=== PATIENT | male | born 1940 | race Caucasian/White ===

== ENCOUNTER 2017-02-09 13:59 | Outpatient (CLI) | payer MEDICARE, BC | END 2017-02-09 14:00 | disposition home or self-care (01) | LOC: LAB 13:59 | PROVIDERS: ATTEND Urology | DX: R31.29 Other microscopic hematuria (principal); Z85.46 Personal history of malignant neoplasm of prostate; N35.9 Urethral stricture, unspecified; R35.1 Nocturia; N39.3 Stress incontinence (female) (male); N39.0 Urinary tract infection, site not specified; N32.0 Bladder-neck obstruction; R39.198 Other difficulties with micturition; Z92.3 Personal history of irradiation | CPT/HCPCS: 36415; 84153 ==

== ENCOUNTER 2018-02-19 09:26 | Outpatient (CLI) | payer MEDICARE, BC | END 2018-02-19 09:27 | disposition home or self-care (01) | LOC: LAB 09:26 | PROVIDERS: ATTEND Urology | DX: Z85.46 Personal history of malignant neoplasm of prostate (principal) | CPT/HCPCS: 36415; 84153 ==

== ENCOUNTER 2018-08-19 11:40 | Outpatient (CLI) | payer MEDICARE, BC | END 2018-08-19 11:41 | disposition home or self-care (01) | LOC: SC 11:40 | PROVIDERS: ATTEND Internal Medicine Pulmonary Disease | DX: G47.33 Obstructive sleep apnea (adult) (pediatric) (principal); E66.9 Obesity, unspecified; Z68.34 Body mass index [BMI] 34.0-34.9, adult | CPT/HCPCS: 99203; G0463; 99212 ==

== ENCOUNTER 2018-11-25 09:22 | Outpatient (CLI) | payer MEDICARE, BC ==
--- NOTE | 2018-11-25 09:45 | SLEEP CARE CONSULTATION ---
Information from patient questionnaire entered by Sharyn Corbin. I have reviewed and concur with the information entered by Sharyn Corbin. This document represents the service I personally performed and the decisions made by me, Nat Scott MD, [facility]. History of Present Illness Previous diagnosis: Moderate, Obstructive Sleep Apnea-Hypopnea Syndrome AHI: 17.4 Reason for CPAP/BiPAP follow up: first compliance Equipment type: BiPAP Equipment obtained from: [email or web address] Prior sleep studies: Yes Year and Where: 2009 [facility] additional information: HPI: Mr. George returned today for follow up of BiPAP therapy. He was diagnosed to have moderate obstructive sleep apnea-hypopnea syndrome. The patient acquired a new BiPAP from [email or web address]. He wears a nasal cushion. He reports using the device nightly and all through the night. The compliance report shows usage in 30 nights out of the past 30 nights, averaging 7.8 hours a night. He complained of no particular problem with the device such as soreness on the face, dry nose, epistaxis, nasal congestion or headache. He thinks that the pressure of 18/12 cmH2O is a little too strong (his original machine was set on 20/14 cmH2O but the loaner machine was set at 18/12 cmH2O). On the BiPAP th erapy he notices improvement in his sleep quality, and that he wakes up feeling fresher in the morning and more awake/alert during the day. His notices no snore at all. The average residual AHI is 7.0; and average time in large leak per day is 22.5 minutes. PE: No significant change on the physical exam today. His weight is 230 lbs (was 202 lbs at the time of his sleep study 9 years ago). CPAP Compliance Data - Data Reviewed with Patient Average duration of nightly device use: 7h 45m Compliance rate %: 96.7 Current pressure setting (cmH2O): 18/12 Humidity settin Heated hose settin Subjective Initial [place] Sleepiness Scale score: 2 Current [place] Sleepiness Scale score: 1 Allergies and Home Medications Drug allergies reviewed: Yes Home medication list reviewed: Yes Review of Systems Review of systems same as previous: Yes Physical Exam Weight (kg): 230 lb Impression and Plan IMPRESSION: 1. Obstructive Sleep Apnea-Hypopnea Syndrome, moderate, with the patient doing well on the BiPAP therapy. He continues to have excellent compliance and significant clinical improvement. The current pressure appears slightly ineffective and comfortable. Overall, he is very satisfied with treatment and plans to continue with it long-term. No adjustment is necessary today. I will not raise the pressure because the patient says that it is too strong already. PLAN: 1. Continue with BiPAP set at 18/12 cmH2O. 2. Try to lose weight 3. Try other masks and nasal pillows. 4. Return in one year for follow up or earlier if there is any problem with the treatment. I spent 100% of the 15 minute visit [id number] with the patient with greater than 50% of this was spent time counseling the patient and coordination of care.
== END 2018-11-25 09:23 | disposition home or self-care (01) ==
LOC: SC 09:22
PROVIDERS: ATTEND Internal Medicine Pulmonary Disease
DX: G47.33 Obstructive sleep apnea (adult) (pediatric) (principal)
CPT/HCPCS: 99213; G0463; 99212

== ENCOUNTER 2019-01-24 13:05 | Outpatient (CLI) | payer MEDICARE, BC | END 2019-01-24 13:06 | disposition home or self-care (01) | LOC: LAB 13:05 | PROVIDERS: ATTEND Urology | DX: Z85.46 Personal history of malignant neoplasm of prostate (principal) | CPT/HCPCS: 36415; 84153 ==

== ENCOUNTER 2019-08-12 07:07 | Outpatient (CLI) | payer MEDICARE, BC ==
--- NOTE | 2019-08-12 13:17 | MRI Report ---
Reason: SEVERE BACK PAIN Procedure Date: 08/12/2019 Accession Number: [id number] / [id number] Procedure: MRI - Lumbar Spine W/O CPT Code: Final Report FULL RESULT: PROCEDURE: Lumbar Spine W/O INDICATIONS: SEVERE BACK PAIN TECHNIQUE: Noncontrast sagittal T1 spin echo and T2 fast echo, sagittal STIR, axial T1 and T2 fast spin echo through the lumbar spine. In cases with scoliosis, additional coronal T2 fast spin echo may be performed. COMPARISON: None. FINDINGS: Image quality: Excellent. Alignment and Curvature: There is mild S-shaped sclerotic curvature, with a primary dextroconvex thoracolumbar curvature. There is minimal retrolisthesis seen at the L1-L2 and the L3-L4 levels. Bone Marrow: Marrow is of normal overall signal. No acute vertebral body compression fractures. Spinal Cord: Conus medullaris terminates at the T12-L1 level. Visualized cord demonstrates normal signal and size. Paraspinous Soft Tissues: No paravertebral masses. T12-L1: No significant abnormality is seen. L1-L2: At least moderate loss of disc height and disc signal are seen. At least moderate disc bulge is seen, which is eccentric to the right. Posteriorly directed endplate osteophytes are seen. Reactive marrow endplate changes are seen, which demonstrate mixed signal and are attributed to a combination of edema and fatty metaplasia (Modic type I and Modic type II changes). Mild to moderate facet hypertrophy is seen. There is moderate to severe bilateral neuroforaminal narrowing seen, left worse than right. At least moderate central canal narrowing is seen. L2-L3: Mild to moderate loss of disc height and disc signal can be seen at this level. At least moderate disc bulge is seen. Moderate facet hypertrophy is seen, left worse than right. There is moderate right-sided and moderate to severe left-sided neuroforaminal narrowing seen. There is a mild degree of compression seen upon the exiting left L2 nerve root. At least moderate central canal narrowing is seen. L3-L4: At least moderate loss of disc height and disc signal are seen. At least moderate disc bulge can be seen at this level. Posteriorly directed endplate osteophytes are seen. Note is made of an annular fissure posteriorly. There is moderate to severe right-sided and moderate left-sided neuroforaminal narrowing seen. There is a mild degree of compression seen upon the exiting right L3 nerve root. Moderate to severe central canal narrowing is seen. L4-L5: Moderate loss of disc height and disc signal can be seen on the right side. At least moderate disc bulge is seen, which is eccentric to the right. There is moderate to severe right-sided and moderate left-sided facet hypertrophy seen. There is moderate to severe bilateral neuroforaminal narrowing seen, right worse than left. Compression is seen upon the exiting nerve roots. Moderate to severe central canal narrowing is seen. L5-S1: The disc height is well-preserved. There is loss of disc signal seen. Moderate disc bulge is seen at this level. There is moderate to prominent right-sided and moderate left-sided facet hypertrophy seen. There is at least moderate bilateral neuroforaminal narrowing seen. Moderate central canal narrowing is seen. IMPRESSION: Multiple levels of lumbar spine degenerative change are seen, which are overall most prominent at L3-L4 and at L4-L5. Reviewed by: Nahid Cevallos MD on 08/12/2019 12:16 PM JOY Approved by: Nahid Cevallos MD on 08/12/2019 12:16 PM JOY Station ID: [id number]
== END 2019-08-12 07:08 | disposition home or self-care (01) ==
LOC: DI 07:07
PROVIDERS: ATTEND Internal Medicine
DX: M51.36 Other intervertebral disc degeneration, lumbar region (principal); M48.061 Spinal stenosis, lumbar region without neurogenic claudication; M47.816 Spondylosis without myelopathy or radiculopathy, lumbar region; M47.817 Spondylosis without myelopathy or radiculopathy, lumbosacral region; M51.37 Other intervertebral disc degeneration, lumbosacral region; M48.07 Spinal stenosis, lumbosacral region
CPT/HCPCS: 72148

== ENCOUNTER 2020-01-27 10:42 | Outpatient (CLI) | payer MEDICARE, BC ==
--- NOTE | 2020-01-27 10:57 | SLEEP CARE CONSULTATION ---
Information from patient questionnaire entered by Mine Carlin. I have reviewed and concur with the information entered by Mine Carlin. This document represents the service I personally performed and the decisions made by me, Nat Scott MD, [facility]. History of Present Illness Service Date and Time: 01/27/2020 1042 Previous diagnosis: Moderate, Obstructive Sleep Apnea-Hypopnea Syndrome AHI: 17.4 (in 2009) Reason for follow up: annual (last seen 11/2018) Equipment type: BiPAP Equipment obtained from: [employer] Mask style: Nasal Prior sleep studies: Yes Year and Where: 2009 - [facility] Type of Sleep Study: Polysomnography HPI additional information: HPI: Mr. George returned today for follow up of BiPAP therapy. He was diagnosed to have moderate obstructive sleep apnea-hypopnea syndrome. The patient gets his BiPAP supplies from [employer]. He wears the [employer]ironics DreamWear nasal cushion mask. He reports using the device nightly and all through the night. The compliance report shows usage in 179 nights out of the past 180 ni ghts, averaging 7.9 hours a night. He complained of no particular problem with the device such as soreness on the face, dry nose, epistaxis, nasal congestion or headache. He thinks that the pressure of 18/12 cmH2O is a little too strong (his original machine was set on 20/14 cmH2O but the loaner machine was set at 18/12 cmH2O). On the BiPAP therapy he notices improvement in his sleep quality, and that he wakes up feeling fresher in the morning and more awake/alert during the day. His notices no snore at all. The average residual AHI is 5.1 (was 7.0); and average time in large leak per day is 28 minutes. CPAP Compliance Data - Data Reviewed with Patient Average duration of nightly device use: 7 hr 58 min Compliance rate %: 97.8 (180 days) Current pressure setting (cmH2O): 18/12 Humidity settin Heated hose settin Average residual AHI: 5.1 Average large leak: 28 min 9 sec Subjective Initial [place] Sleepiness Scale score: 2 (in 2009) Allergies and Home Medications Drug allergies reviewed: Yes Home medication list reviewed: Yes Review of Systems Review of systems same as previous: Yes Physical Exam Vital signs obtained and entered by: To minimize the risk of COVID-19 exposure, detailed exam was not performed. Height: 5 ft 11 in Weight: 225 lb Weight change since last visit: -5 Body Mass Index: 31.4 BMI Classification: Obese Impression and Plan 1. Obstructive Sleep Apnea-Hypopnea Syndrome, moderate, with the patient doing well on the BiPAP therapy. He continues to have excellent compliance and significant clinical improvement. The current pressure appears more effective and comfortable. Overall, he is very satisfied with treatment and plans to continue with it long-term. No adjustment is necessary today. I will not raise the pressure because the patient says that it is too strong already. PLAN: 1. Continue with BiPAP set at 18/12 cmH2O. 2. Try to lose weight 3. Try [employer]Med N30i mask and P30i nasal pillows. They might fit better. 4. Return in one year for follow up or earlier if there is any problem with the treatment. Visit Type: In Office Time Spent with Patient (minutes): 15 Provider Statement: I spent 100% of the Face to Face Visit with the patient with greater than 50% spent counseling the patient and coordination of care.
== END 2020-01-27 10:43 | disposition home or self-care (01) ==
LOC: SC 10:42
PROVIDERS: ATTEND Internal Medicine Pulmonary Disease
DX: G47.33 Obstructive sleep apnea (adult) (pediatric) (principal); E66.9 Obesity, unspecified; Z68.31 Body mass index [BMI] 31.0-31.9, adult
CPT/HCPCS: 99213; G0463; 99212

== ENCOUNTER 2020-04-20 08:00 | Outpatient (CLI) | payer MEDICARE, BC | END 2020-04-20 23:59 | disposition home or self-care (01) | LOC: LAB 08:00 | PROVIDERS: ATTEND Urology | DX: C61 Malignant neoplasm of prostate (principal) | CPT/HCPCS: 36415; 84153 ==

== ENCOUNTER 2020-09-26 14:37 | Emergency (ER) | payer MEDICARE, BC ==
[2020-09-26 14:50] VITALS: BP 157/77
[2020-09-26] MEDS ORDERED: LIDOCAINE 2% URO-JET 5 ML SYRINGE UR STA (14:53)
--- NOTE | 2020-09-26 15:13 | ED Physician Documentation ---
History of Present Illness - Stated complaint Stated Complaint: UNABLE TO URINATE - Chief complaint Chief Complaint: Abd Pain - History obtained from History obtained from: Patient - History of Present Illness Timing: Today Pain level max: 0 Pain level now: 0 - Additonal information Additional information: Patient is an 80-year-old male who presents to the emergency department stating he has been unable to urinate today. He normally has very little sensation to his genital area, this is a chronic issue. He states he normally dribbles urine into a pad in his underwear. He will occasionally have to self cath as well. He was unable to pass any self catheters today. He states he has the sensation to urinate, which is unusual for him. No fevers. No chills. No vomiting. Has had prostate cancer in the past. No diarrhea or constipation. Review of Systems Constitutional: denies: Fever, Chills GI: denies: Vomiting Skin: denies: Rash Musculoskeletal: denies: Neck pain, Back pain Neurologic: denies: Headache PD PAST MEDICAL HISTORY - Past Medical History Cardiovascular: None Respiratory: Sleep apnea, CPAP use Endocrine/Autoimmune: None GI: Colon polyps : Incontinence, Indwelling catheter, Other HEENT:  Psych: None Musculoskeletal: Osteoarthritis Derm: Other - Past Surgical History General: Colonoscopy HEENT: Cataracts - Present Medications Home Medications: Ambulatory Orders Medication Instructions Recorded Confirmed HYDROcod/ACETAM 5/325 [Vicodin 0.5 each PO QPM 01/16/13 07/27/15 5/325] Ropinirole HCl [Requip] 0.5 mg PO QID 01/16/13 07/28/15 - Allergies Allergies/Adverse Reactions: Allergies Allergy/AdvReac Type Severity Reaction Status Date / Time ciprofloxacin [From Cipro] Allergy Unknown Unknown Verified 09/26/20 14:50 ciprofloxacin HCl * Allergy Unknown Unknown Verified 09/26/20 14:50 [From Cipro] sulfamethoxazole Allergy Unknown Unknown Verified 09/26/20 14:50 [From Bactrim] trimethoprim [From Bactrim] Allergy Unknown Unknown Verified 09/26/20 14:50 - Social History Smoking Status: Former smoker PD ED PE NORMAL - Vitals Vital signs reviewed: Yes - General General: Alert and oriented X 3, No acute distress - HEENT HEENT: Moist mucous membranes - Neck Neck: Supple, no meningeal sign - Cardiac Cardiac: RRR - Respiratory Respiratory: No respiratory distress, Clear bilaterally - Derm Derm: Warm and dry - Extremities Extremities: No edema, No calf tenderness / cord - Neuro Neuro: Alert and oriented X 3 Results - Vitals Vitals: Vital Signs - 24 hr 09/26/20 14:46 Temperature 36.6 C Heart Rate 68 Respiratory 15 Rate Blood Pressure 157/77 H O2 Saturation 99 Oxygen O2 Source Room air PD MEDICAL DECISION MAKING - ED course Complexity details: considered differential, d/w patient, d/w c consultant ED course: M[place]allum catheterization was attempted several times in the emergency department with a 16 Gren[place] catheter, 16 Grenadian coud, 22 Grenadian coud and a 14 Grenadian coud. No catheter was able to be passed. His bladder scan reveals approximately 150 mL in his bladder. He is followed by [facility] urology. Discussed the case with Dr. Alberto, urology at [facility], she recommends attempting a 12 Grenadian catheter as he does have a history of urethral strictures. This was unable to be passed as well. We will transfer the patient to [facility] for further care. Discussed the case with Dr. Kent, emergency medicine physician at [facility], she graciously accepts in transfer to the emergency department. COBRA forms completed. This document was made in part using voice recognition software. While efforts are made to proofread this document, sound alike and grammatical errors may occur. Departure - Departure Disposition: 02 Transfer Acute Care Hosp Clinical Impression: Acute urinary retention Urethral stricture Qualifiers: Urethral stricture type: unspecified stricture type Urethral stricture sex- location: male urethra-unspecified Qualified Code(s): N35.919 - Unspecified urethral stricture, male, unspecified site Condition: Stable
[2020-09-26] MEDS ORDERED: MORPHINE 2 MG/ML CARPUJECT IM STA (18:15)
== END 2020-09-26 18:20 | disposition short-term general hospital (02) ==
LOC: ED 14:37
DX: R33.9 Retention of urine, unspecified (principal); Z87.891 Personal history of nicotine dependence
CPT/HCPCS: 51702; 99284; 99285

== ENCOUNTER 2020-09-26 18:26 | Outpatient (CLI) | payer MEDICARE, BC | END 2020-09-26 18:27 | disposition short-term general hospital (02) | LOC: EMS 18:26 | DX: R33.9 Retention of urine, unspecified (principal) | CPT/HCPCS: A0425; A0428 ==

== ENCOUNTER 2021-04-14 08:00 | Outpatient (CLI) | payer MEDICARE, BC | END 2021-04-14 23:59 | LOC: LAB.R 08:00 | PROVIDERS: ATTEND Internal Medicine | DX: R39.9 Unspecified symptoms and signs involving the genitourinary system (principal) | CPT/HCPCS: 87077; 87086; 87181 ==

== ENCOUNTER 2021-04-25 10:15 | Outpatient (CLI) | payer MEDICARE, BC ==
[2021-04-25 10:58] VITALS: BP 130/76
--- NOTE | 2021-04-25 10:58 | SLEEP CARE CONSULTATION ---
Information from patient questionnaire entered by Desmond Ramirez MA. I have reviewed and concur with the information entered by Desmond Ramirez MA. This document represents the service I personally performed and the decisions made by me, Nat Scott MD, [facility]. History of Present Illness Service Date and Time: 04/25/2021 1015 Previous diagnosis: Moderate, Obstructive Sleep Apnea-Hypopnea Syndrome AHI: 17.4 (in 2009) Reason for follow up: annual (LAST SEEN 01/2020,) Equipment type: BiPAP Equipment obtained from: [employer] Mask style: Nasal Prior sleep studies: Yes Year and Where: 2009 - [facility] Type of Sleep Study: Polysomnography HPI additional information: Mr. George returned today for annual follow up of BiPAP therapy. He was diagnosed to have moderate obstructive sleep apnea-hypopnea syndrome. The patient gets his BiPAP supplies from [employer]. He wears the Respironics DreamWear nasal pillows. He reports using the device nightly and all through the night. The compliance report shows usage in 364 nights out of the past 365 nights, averaging 8.2 hours a night. The > 4-hour compliance rate for the past 365 days is 99.2%. He complained of no dry mouth. He thinks that the pressure of 18/12 cmH2O is comfortable. On the BiPAP therapy he notices improvement in his sleep quality, and that he wakes up feeling fresher in the morning and more awake/alert during the day. [place] Sleepiness Scale score is 2. His notices no snore at all. The average residual AHI is 3.4; and average time in large leak per day is 1.7 hours but got a lot better the past 2 weeks after he changed the headgear. Sleep Study - Results Type of Sleep Study: Polysomnography Prior sleep studies: Yes Year and Where: 2009 - [facility] CPAP Compliance Data - Data Reviewed with Patient Average duration of nightly device use: 8 HOURS 2 MINUTES Compliance rate %: 98.9 Current pressure setting (cmH2O): 18I/12E Humidity settin Heated hose settin Average residual AHI: 3.4 Average large leak: 1 HOUR 55 MINUTES Subjective Missed days of use due to: reports: other (POWER OUTAGE) Patient concerns: reports: dry mouth, nose, throat Current pressure setting perceived as: comfortable Initial [place] Sleepiness Scale score: 2 (in 2009) Current [place] Sleepiness Scale score: 2 (2021) Allergies and Home Medications Drug allergies reviewed: Yes Home medication list reviewed: Yes Allergy and home medication list: Allergies ciprofloxacin [From Cipro] Allergy (Unknown, Verified 09/26/20 14:50) Unknown ciprofloxacin HCl * [From Cipro] Allergy (Unknown, Verified 09/26/20 14:50) Unknown sulfamethoxazole [From Bactrim] Allergy (Unknown, Verified 09/26/20 14:50) Unknown trimethoprim [From Bactrim] Allergy (Unknown, Verified 09/26/20 14:50) Unknown Review of Systems Review of systems same as previous: Yes Physical Exam Vital signs obtained and entered by: LORE LASSITER Blood Pressure: 130/76 (LEFT, PULSE 67, RESP 16, ) Cuff size: wrist Heart Rate: 82 O2 Saturation: 97 (PAPER MASK) Height: 5 ft 11 in Weight: 230 lb (CLOTHES) Body Mass Index: 32.1 BMI Classification: Obese Impression and Plan IMPRESSION: 1. Obstructive Sleep Apnea-Hypopnea Syndrome, moderate, with the patient doing well on the BiPAP therapy. He continues to have excellent compliance and significant clinical improvement. The current pressure appears effective and comfortable. Overall, he is very satisfied with treatment and plans to continue with it long-term. No adjustment is necessary today. In regard to the recall on all [employer] Dream[employer] devices, we discussed the risks and benefits of stopping versus continuing to use the device. In severe cases, it appears the benefits outweigh the risks and it is reasonable to continue until the replace part or machine becomes available. Symptoms that could be related to the recalled sound abatement foam piece are headache, nausea, chest tightness, and upper airway irritation. The patients should also look for debris in the air outlet, water reservoir, and hose. If found, the device should not be used. In [id number] cases, the patients should refrain from using the device. The patient should register the device on [employer]-update. PLAN: 1. Continue with BiPAP set at 18/12 cmH2O. 2. Adjust the heated humidifier up if he has dry mouth. 3. Try Respironics DreamWear [id number] mask. 4. Mentor the device with [employer] to get a replacement machine. 4. Return in one year for follow up or earlier if there is any problem with the treatment. Follow up with Sleep Care in: 1 year Visit Type: In Office Time Spent with Patient (minutes): 15 Provider Statement: I spent 100% of the Face to Face Visit with the patient with greater than 50% spent counseling the patient and coordination of care.
== END 2021-04-25 10:16 | disposition home or self-care (01) ==
LOC: SC 10:15
PROVIDERS: ATTEND Internal Medicine Pulmonary Disease
DX: G47.33 Obstructive sleep apnea (adult) (pediatric) (principal); E66.9 Obesity, unspecified; Z68.32 Body mass index [BMI] 32.0-32.9, adult
CPT/HCPCS: 99212; G0463

== ENCOUNTER 2021-05-04 08:29 | Day surgery (SDC) | payer MEDICARE, BC ==
[2021-05-04] MEDS ORDERED: LACTATED RINGERS 1,000 ML IV ONE (08:56)
--- NOTE | 2021-05-04 09:16 | ANESTHESIA ---
Pre-Anesthesia VS, & Labs - Diagnosis screening exam - Procedure colonoscopy Vital Signs: Temp Pulse Resp BP Pulse Ox 36.6 C 78 19 155/92 H 97 05/04/21 08:48 05/04/21 08:48 05/04/21 08:48 05/04/21 08:48 05/04/21 08:48 Height: 5 ft 11 in Weight (kg): 105 kg Body Mass Index: 32.3 BMI Classification: Obese - NPO >8 hours Home Medications and Allergies Ropinirole HCl [Requip] 0.5 mg PO QID 01/16/13 Allergies/Adverse Reactions: Allergies Allergy/AdvReac Type Severity Reaction Status Date / Time ciprofloxacin [From Cipro] Allergy Unknown Unknown Verified 09/26/20 14:50 ciprofloxacin HCl * Allergy Unknown Unknown Verified 09/26/20 14:50 [From Cipro] sulfamethoxazole Allergy Unknown Unknown Verified 09/26/20 14:50 [From Bactrim] trimethoprim [From Bactrim] Allergy Unknown Unknown Verified 09/26/20 14:50 Anes History & Medical History - Anesthetic History Anesthesia Complications: reports: No previous complications - Medical History Cardiovascular: reports: None Pulmonary: reports: Sleep apnea, CPAP use Gastrointestinal: reports: Colon polyps Urinary: reports: Incontinence, Indwelling catheter, Other Neuro: reports: None Musculoskeletal: reports: Osteoarthritis Endocrine/Autoimmune: reports: None Blood Disorders: reports: None Skin: reports: Other Smoking Status: Former smoker (quit 40 years ago) Psychosocial: reports: Alcohol (daily martini) History of Cancer?: Yes (prostate cancer, s/p brachytherapy) - Surgical History General: reports: Colonoscopy Eyes Ears Nose Throat (EENT): reports: Cataracts Urologic: reports: Bladder surgery, Prostatic surgery Exam General: Alert, Oriented x3, Cooperative, No acute distress Dental: WNL Mouth Openin Fingerbreadth Neck Mobility: Normal Mallampati classification: III Thyromental Distance: 4-6 cm Mental/Cognitive Status: Alert/Oriented X3, Normal for patient Plan Anesthesia Type: General, Total IV Consent for Procedure(s) Verified and Reviewed: Yes Code Status: Attempt Resuscitation ASA classification: 2-Mild systemic disease Is this case an emergency?: No
[2021-05-04] MEDS ORDERED: PROPOFOL 500 MG/50 ML 500 MG/50 ML VIAL ONE (09:59)
[2021-05-04] MEDS ORDERED: fentaNYL 100 MCG/2 ML VIAL ONE (10:30)
[2021-05-04] MEDS ORDERED: LACTATED RINGERS 200 ML IV ONE (10:56)
[2021-05-04 11:13] VITALS: BP 112/80
--- NOTE | 2021-05-04 12:58 | ANESTHESIA POST OP EVALUATION ---
Anesthesia Post Eval - Post Anesthesia Eval Vitals: Last Vital Signs Temp 36.2 C L 05/04/21 11:12 Pulse 60 05/04/21 11:12 Resp 16 05/04/21 11:12 BP 112/80 05/04/21 11:12 Pulse Ox 96 05/04/21 11:12 CV Function Including HR & BP: Stable Pain Control: Satisfactory Nausea & Vomiting: Negative Mental Status: Baseline Respiratory Status: Airway Patent Hydration Status: Satisfactory Anesthesia Complications: None
== END 2021-05-04 08:30 | disposition home or self-care (01) ==
LOC: SDS 08:29
PROVIDERS: ATTEND Surgery
PROC: 0DBK8ZZ Excision of Ascending Colon, Via Natural or Artificial Opening Endoscopic (ICD-10-PCS; principal; 2021-05-04 09:45)
DX: Z12.11 Encounter for screening for malignant neoplasm of colon (principal); D12.2 Benign neoplasm of ascending colon; K57.30 Diverticulosis of large intestine without perforation or abscess without bleeding; K64.8 Other hemorrhoids; E66.9 Obesity, unspecified; Z68.32 Body mass index [BMI] 32.0-32.9, adult; Z87.891 Personal history of nicotine dependence; G47.30 Sleep apnea, unspecified
CPT/HCPCS: 45385; J7120

== ENCOUNTER 2022-06-05 14:43 | Outpatient (CLI) | payer MEDICARE, BC ==
[2022-06-05 16:55] VITALS: BP 140/82
--- NOTE | 2022-06-05 16:55 | SLEEP CARE CONSULTATION ---
Information from patient questionnaire entered by Gill Jimenez. I have reviewed and concur with the information entered by Gill Jimenez. This document represents the service I personally performed and the decisions made by me, Nat Scott MD, [facility]. History of Present Illness Service Date and Time: 06/05/2022 1443 Previous diagnosis: Moderate, Obstructive Sleep Apnea-Hypopnea Syndrome AHI: 17.4 (in 2009) Reason for follow up: annual (LAST SEEN 04/2021) Equipment type: BiPAP (SHINE) Equipment obtained from: [employer] Mask style: Nasal Prior sleep studies: Yes Year and [facility] Type of Sleep Study: Polysomnography HPI additional information: Mr. George returned today for annual follow up of BiPAP therapy. He was diagnosed to have moderate obstructive sleep apnea-hypopnea syndrome. The patient gets his BiPAP supplies from [employer]. He wears the [employer] Dream[employer]ear nasal pillows. He reports using the device nightly and all through the night. The compliance report shows usage in 178 nights out of the past 180 nights, averaging 7.8 hours a night. The > 4-hour compliance rate for the past 180 days is 98.4%. He complained of no dry mouth. He thinks that the pressure of 18/12 cmH2O is comfortable. On the BiPAP therapy he notices improvement in his sleep quality, and that he wakes up feeling fresher in the morning and more awake/alert during the day. [place] Sleepiness Scale score is 1. His notices no snore at all. The average residual AHI is 21.2 (was 3.4); and average time in large leak per day is 1.3 hours. Most of the residual respiratory events are central apneas. Sleep Study - Results Type of Sleep Study: Polysomnography Prior sleep studies: Yes Year and Where: [facility] CPAP Compliance Data - Data Reviewed with Patient Average duration of nightly device use: 7HRS 47MINS 58SECS Compliance rate %: 99.4 (12/03/21-05/31/22) Current pressure setting (cmH2O): 18/12 Average residual AHI: 21.2 Subjective Initial [place] Sleepiness Scale score: 2 (in 2009) Current [place] Sleepiness Scale score: 1 (06/05/22) Allergies and Home Medications Drug allergies reviewed: Yes Home medication list reviewed: Yes Allergy and home medication list: Allergies ciprofloxacin [From Cipro] Allergy (Unknown, Verified 06/02/22 15:55) Unknown ciprofloxacin HCl * [From Cipro] Allergy (Unknown, Verified 06/02/22 15:55) Unknown sulfamethoxazole [From Bactrim] Allergy (Unknown, Verified 06/02/22 15:55) Unknown trimethoprim [From Bactrim] Allergy (Unknown, Verified 06/02/22 15:55) Unknown Review of Systems Review of systems same as previous: Yes Physical Exam Vital signs obtained and entered by: GILL Adams MA Blood Pressure: 140/82 (LAST SEEN) Cuff size: regular Heart Rate: 70 O2 Saturation: 96 Height: 5 ft 11 in Weight: 240 lb Body Mass Index: 33.5 BMI Classification: Obese Impression and Plan IMPRESSION: 1. Obstructive Sleep Apnea-Hypopnea Syndrome, moderate, with the patient doing well on the BiPAP therapy. He continues to have excellent compliance and significant clinical improvement. The current pressure setting all of the sudden in August of last year became ineffective (residual AHI went up from the average of 3.4 to 21.2). The patient thinks it coincides with his getting a replacement machine from [employer] He presently is not taking any opiate meds. He does not think he has congestive heart failure. His last manual CPAP/BiPAP titration study was 13 years ago. I suspect that the reported residual AHI value is inaccurate. PLAN: 1. Continue with BiPAP set at 18/12 cmH2O. 2. Schedule a manual CPAP/BiPAP titration study. 3. Return in one year for follow up after the titration study. Continue with device pressure at (cmH2O): 18/12 Follow up with Sleep Care in: 3 months Plan: manual BiPAP titration study when available Visit Type: In Office Time Spent with Patient (minutes): 15 Provider Statement: I spent 100% of the Face to Face Visit with the patient with greater than 50% spent counseling the patient and coordination of care.
== END 2022-06-05 14:44 | disposition home or self-care (01) ==
LOC: SC 14:43
PROVIDERS: ATTEND Internal Medicine Pulmonary Disease
DX: G47.33 Obstructive sleep apnea (adult) (pediatric) (principal); E66.9 Obesity, unspecified; Z68.33 Body mass index [BMI] 33.0-33.9, adult
CPT/HCPCS: 99212; G0463

== ENCOUNTER 2022-07-12 08:09 | Outpatient (CLI) | payer MEDICARE, BC | END 2022-07-12 08:10 | disposition home or self-care (01) | LOC: LAB 08:09 | PROVIDERS: ATTEND Urology | DX: Z12.5 Encounter for screening for malignant neoplasm of prostate (principal) | CPT/HCPCS: 36415; G0103; 84153 ==

== ENCOUNTER 2022-09-26 19:41 | Outpatient (CLI) | payer MEDICARE, BC | END 2022-09-26 19:42 | disposition home or self-care (01) | LOC: SC 19:41 | PROVIDERS: ATTEND Internal Medicine Pulmonary Disease | DX: G47.33 Obstructive sleep apnea (adult) (pediatric) (principal); G47.61 Periodic limb movement disorder | CPT/HCPCS: 95811 ==

== ENCOUNTER 2022-10-23 12:33 | Outpatient (CLI) | payer MEDICARE, BC ==
--- NOTE | 2022-10-23 22:30 | SLEEP CARE CONSULTATION ---
Information from patient questionnaire entered by Gill Jimenez. I have reviewed and concur with the information entered by Gill Jimenez. This document represents the service I personally performed and the decisions made by me, Nat Scott MD, [facility]. History of Present Illness Service Date and Time: 10/23/2022 1233 Initial [place] Sleepiness Scale score: 2 (in 2009) Current [place] Sleepiness Scale score: 8 (10/23/22) Additional HPI information: Mr. George returns for follow up of the sleep study (a manual CPAP titration study) he had on 09/26/2022. The study showed that BiPAP was initiated at 12/8 cmH2O and titrated down to 10/6 cmH2O. BiPAP at 12/8 cmH2O appeared to be optimal (residual AHI of 0 per hour on the pressure). There was supine REM sleep on the pressure. Oxygen saturation was minimally low. Lower pressure settings allowed a few residual respiratory events. The patient appeared to have tolerated positive airway pressure therapy fairly well. The patients sleep efficiency was reduced due to two prolonged awakenings during the night. The sleep architecture was abnormal for sleep fragmentation and lack of slow wave sleep (N3). There was severe periodic leg movement of sleep contributing to the sleep fragmentation. Cardiac rhythm was normal sinus rhythm without significant arrhythmia. No abnormal behavior (parasomnia) observed during the night. The patient was informed of these findings. I explained to him that the current pressure is too high. Presently his CPAP is set at 18/12 cmH2O. He told me that he has been using the device every night and pretty much all nightlong. He complains of feeling more tired. Sleep Study - Results Type of Sleep Study: Polysomnography (TITRATION STUDY F/U 09/26/22) Prior sleep studies: Yes Year and Where: 2009 - [facility] Allergies and Home Medications Drug allergies reviewed: Yes Home medication list reviewed: Yes Allergy and home medication list: Allergies ciprofloxacin [From Cipro] Allergy (Unknown, Verified 10/20/22 10:39) Unknown ciprofloxacin HCl * [From Cipro] Allergy (Unknown, Verified 10/20/22 10:39) Unknown sulfamethoxazole [From Bactrim] Allergy (Unknown, Verified 10/20/22 10:39) Unknown trimethoprim [From Bactrim] Allergy (Unknown, Verified 08/18/23 10:39) Unknown Review of Systems Review of systems same as previous: Yes Physical Exam Vital signs obtained and entered by: GILL Adams MA Blood Pressure: 118/66 (LEFT ARM) Cuff size: regular Heart Rate: 74 O2 Saturation: 95 Height: 5 ft 11 in Weight: 223 lb Body Mass Index: 31.1 BMI Classification: Obese Impression and Plan IMPRESSION: 1. Obstructive Sleep Apnea-Hypopnea Syndrome, moderate, adequately controlled with BiPAP set at 12/8 cmH2O. So far, he has been doing well on the treatment and continues to have good treatment compliance. Based on the titra tion study, I will lower the pressure to 12/8 cmH2O. The high pressure may explain why he had high central apnea index on the compliance/efficacy report. PLAN: 1. BiPAP set to 12/8 cmH2O on the machine. 2. humidity set at 5. 3. Return for follow up in one month. Adjust device pressure to (cmH2O): 12/8 Follow up with Sleep Care in: 1-2 months Visit Type: In Office Other Participants: Spouse/Significant Other Time Spent with Patient (minutes): 15 Provider Statement: I spent 100% of the Face to Face Visit with the patient with greater than 50% spent counseling the patient and coordination of care.
[2022-10-23 22:36] VITALS: BP 118/66; O2SAT 95
== END 2022-10-23 12:34 | disposition home or self-care (01) ==
LOC: SC 12:33
PROVIDERS: ATTEND Internal Medicine Pulmonary Disease
DX: G47.33 Obstructive sleep apnea (adult) (pediatric) (principal); E66.9 Obesity, unspecified; Z68.31 Body mass index [BMI] 31.0-31.9, adult
CPT/HCPCS: 99212; G0463

== ENCOUNTER 2022-11-15 14:08 | Emergency (ER) | payer MEDICARE, BC ==
[2022-11-15 14:26] VITALS: O2SAT 96
--- NOTE | 2022-11-15 16:28 | ED Physician Documentation ---
History of Present Illness - Stated complaint Stated Complaint: - Chief complaint Chief Complaint: Abd Pain - Additonal information Additional information: 82-year-old male presents emergency department for evaluation of urinary tract infection. Began having some discomfort and urinary symptoms yesterday. Had a temperature of 100.3 this morning. Denies abdominal pain, flank pain or vomiting. Patient does have a history of prostate cancer and intermittently gets urinary tract infections. On presentation the emergency department he is alert and well-appearing. He is afebrile. Heart rate 74 blood pressure 150/70. Review of Systems Constitutional: denies: Chills Cardiac: reports: Reviewed and negative Respiratory: reports: Reviewed and negative GI: reports: Reviewed and negative : reports: Dysuria, Hesitancy. denies: Incontinent, Hematuria, Discharge PD PAST MEDICAL HISTORY - Past Medical History Cardiovascular: None Respiratory: Sleep apnea, CPAP use Neuro: None Endocrine/Autoimmune: None GI: Colon polyps : Incontinence, Indwelling catheter, Other HEENT:  Psych: None Musculoskeletal: Osteoarthritis Derm: Other - Past Surgical History General: Colonoscopy HEENT: Cataracts - Present Medications Home Medications: Ambulatory Orders Medication Instructions Recorded Confirmed Ropinirole HCl [Requip] 0.5 mg PO QID 01/16/13 05/03/21 Ciprofloxacin HCl [Cipro] 500 mg PO BID #14 tablet 11/15/22 - Allergies Allergies/Adverse Reactions: Allergies Allergy/AdvReac Type Severity Reaction Status Date / Time sulfamethoxazole Allergy Unknown Unknown Verified 11/15/22 14:13 [From Bactrim] trimethoprim [From Bactrim] Allergy Unknown Unknown Verified 11/15/22 14:13 - Social History Does the pt smoke?: No Smoking Status: Former smoker (quit 40 years ago) PD ED PE NORMAL - General General: Alert and oriented X 3, No acute distress - HEENT HEENT: PERRL - Neck Neck: Supple, no meningeal sign, No adenopathy - Cardiac Cardiac: RRR, No murmur - Respiratory Respiratory: No respiratory distress - Abdomen Abdomen: Normal bowel sounds, Soft, Non tender - Back Back: No CVA TTP - Derm Derm: Normal color, Warm and dry, No rash - Extremities Extremities: No deformity - Neuro Neuro: Alert and oriented X 3, 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 Eye Opening: Spontaneous Motor: Obeys Commands Verbal: Oriented GCS Score: 15 Results - Vitals Vitals: Vital Signs - 24 hr 11/15/22 14:16 Temperature 36.5 C Heart Rate 74 Respiratory 16 Rate Blood Pressure 150/70 H O2 Saturation 96 Oxygen O2 Source Room air - Labs Labs: Laboratory Tests 11/15/22 14:25 Urine Color YELLOW Urine Clarity CLEAR Urine pH 5.5 Ur Specific Nathalie 1.025 Urine Protein TRACE Urine Glucose (UA) NEGATIVE Urine Ketones 15 H Urine Occult Blood MODERATE H Urine Nitrite NEGATIVE Urine Bilirubin NEGATIVE Urine Urobilinogen 0.2 (NORMAL) Ur Leukocyte Esterase TRACE H Urine RBC 6-10 H Urine WBC 0-3 Ur Squamous Epith Cells RARE Squamous Urine Bacteria Rare Ur Microscopic Review INDICATED Urine Culture Comments INDICATED PD Medical Decision Making - ED course Complexity details: reviewed results, re-evaluated patient, considered di fferential, d/w patient ED course: Heart 82-year-old male presents emergency department for evaluation of painful urination that began yesterday evening. He has a history of prostate cancer and states that this feels similar to previous urinary infections. Has had no fevers vomiting or flank pain. On exam he appears remarkably well without fevers, tachycardia or hypotension. I did obtain a urinalysis which is suggestive of cystitis and though not an infection per se. He does have positive LE, bacteria and hematuria. He will be prescribed a antibiotic/Cipro. Advised that if not markedly better after 2-3 doses or symptoms worsening before then he should return to the ER for reevaluation. We will continue to follow closely with Dr. Garg. Departure - Departure Disposition: 01 Home, Self Care Clinical Impression: Dysuria Condition: Stable Record reviewed to determine appropriate education?: Yes Prescriptions: Ciprofloxacin HCl [Cipro] 500 mg PO BID #14 tablet Comments: Your your urine today suggests infection though it is not 100% consistent with that but given that you are male with painful urination is appropriate to treat today. Prescription for Cipro has been sent to the [facility] pharmacy and can be filled tomorrow. I would expect improved symptoms after the first 2 or 3 doses of antibiotic. If you are developing any fevers, have back pain vomiting or any worsening symptoms do not hesitate to return immediately to the ER. Forms: PCP List
[2022-11-15 16:35] LABS: BILIRUBIN,URINE NEGATIVE (NEGATIVE); GLUCOSE, URINE (UA) NEGATIVE (NEGATIVE); KETONES,URINE (UA) 15 mg/dL (NEGATIVE); LEUKOCYTE ESTERASE, URINE TRACE (NEGATIVE); NITRITE,URINE NEGATIVE (NEGATIVE); OCCULT BLOOD,URINE MODERATE (NEGATIVE); PH,URINE 5.5 PH (5.0-7.5); PROTEIN,URINE TRACE mg/dL (NEGATIVE); UROBILINOGEN,URINE 0.2 (NORMAL) E.U./dL (NORMAL)
[2022-11-15 16:41] LABS: CLARITY,URINE CLEAR (CLEAR)
[2022-11-15 16:49] LABS: BACTERIA,URINE Rare /HPF (None Seen); SQUAMOUS EPITHELIAL CELL,UR RARE Squamous (<= Few); WBC,URINE 0-3 /HPF (0-3)
[2022-11-15] MEDS ORDERED: CIPROFLOXACIN 250 MG TABLET PO STA (16:59)
[2022-11-15 17:08] VITALS: BP 154/65
== END 2022-11-15 17:24 | disposition home or self-care (01) ==
LOC: ED 14:08
DX: R30.0 Dysuria (principal); Z87.891 Personal history of nicotine dependence
CPT/HCPCS: 81001; 87086; 99283; A9270; 81003

== ENCOUNTER 2023-07-09 08:34 | Outpatient (CLI) | payer MEDICARE, BC | END 2023-07-09 08:35 | disposition home or self-care (01) | LOC: LAB 08:34 | PROVIDERS: ATTEND Urology | DX: Z08 Encounter for follow-up examination after completed treatment for malignant neoplasm (principal); Z85.46 Personal history of malignant neoplasm of prostate | CPT/HCPCS: 36415; 84153 ==